=== PATIENT | male | born 1985 | race African-American/Black ===

== ENCOUNTER 2022-01-14 07:27 | Emergency (ER) | payer OTHER, SELFPAY | END 2022-01-14 08:20 | disposition home or self-care (01) | LOC: NAV ERS 07:27 | DX: U07.1 COVID-19 (principal); F17.210 Nicotine dependence, cigarettes, uncomplicated | CPT/HCPCS: 99283; U0003; U0005 ==

== ENCOUNTER 2023-12-10 12:40 | Emergency (ER) | payer BC ==
[2023-12-10] MEDS ORDERED: Acetaminophen 500 MG TAB ONE (13:02)
[2023-12-10 13:54] LABS: Influenza A by NAA Not Detected (NotDetected); Influenza B by NAA Not Detected (NotDetected); SARS-CoV-2 NAA Rapid Test Not Detected (NotDetected)
[2023-12-10] MEDS ORDERED: Dexamethasone 4 MG TAB ONE (14:45)
[2023-12-10] MEDS ORDERED: Dexamethasone 1 MG TAB ONE (14:45)
== END 2023-12-10 14:48 | disposition home or self-care (01) ==
LOC: NAV ERS 12:40
DX: B34.9 Viral infection, unspecified (principal); J02.9 Acute pharyngitis, unspecified; F17.210 Nicotine dependence, cigarettes, uncomplicated
CPT/HCPCS: 87081; 87430; 99283; J8540